=== PATIENT | female | born 2000 | race Hispanic/Latino ===

== ENCOUNTER 2019-04-24 09:09 | Inpatient (IN) | payer OTHER ==
[~2019-04-24] VITALS: Ht 157.5 cm; Wt 52.0 kg
--- OUTSIDE RECORDS SUMMARY | ~2019-04-24 | XMS | Encounter Summary ---
Demographics + + + | Address | [address] | | | [place] [address] | + + + | Home Phone | | + + + | Preferred Language | Unknown | + + + | Marital Status | Single | + + + | Jehovah'S Witness Affiliation | Unknown | + + + | Race | Unknown | + + + | Ethnic Group | Unknown | + + + Author + + + | Author | [facility] | | | and [place]arciso[place] | + + + | Organization | [facility] | | | and [place] | + + + | Address | Unknown | + + + | Phone | Unavailable | + + + Support + + +---------+ + | Name | Relationship | Address | Phone | + + +---------+ + | Meg Valenzuela | ECON | Unknown | | + + +---------+ + Care Team Providers + +------+ + | Care Parking Patroller Name | Role | Phone | + +------+ + PCP | Unavailable | + +------+ + Encounter Details +--------+ + + + + | Date | Type | Department | Care Team | Description | +--------+ + + + + | 03/30/ | Orders Only | [facility] | [place], | | | 2017 | | F[facility]ILITY [facility] | [address] | | | | | [address] | [address], | | | | | [address] [place], [place] | [place] [address] | | | | | [address] | [phone] | | | | | [phone] | | | +--------+ + + + + Social History + +-------+ +--------+------+ | Tobacco Use | Types | Packs/Day | Years | Date | | | | | Used | | + +-------+ +--------+------+ | Never Smoker | | | | | + +-------+ +--------+------+ + + + | Sex Assigned at | Date Recorded | | | | + + + | Not on file | | + + + + + + + | Job Start Date | Occupation | Industry | + + + + | Not on file | Not on file | Not on file | + + + + + + + + | Travel History | Travel Start | Travel End | + + + + + + | No recent travel history available. | + + documented as of this encounter Plan of Treatment Not on filedocumented as of this encounter Visit Diagnoses Not on filedocumented in this encounter"
--- OUTSIDE RECORDS SUMMARY | ~2019-04-24 | XMS | Clinical Summary ---
Demographics + + + | Address | [address] | | | [place] [address] | + + + | Home Phone | | + + + | Preferred Language | Unknown | + + + | Marital Status | Single | + + + | Yarsanism Affiliation | Unknown | + + + | Race | Unknown | + + + | Ethnic Group | Unknown | + + + Author + + + | Author | [facility] (Historical as of | | | 01-06-19) | + + + | Organization | [facility] (Historical as of | | | 01-06-19) | + + + | Address | Unknown | + + + | Phone | Unavailable | + + + Support + + +---------+ + | Name | Relationship | Address | Phone | + + +---------+ + | Meg Valenzuela | ECON | Unknown | | + + +---------+ + Care Team Providers + +------+ + | Care Research Psychologist Name | Role | Phone | + +------+ + PP | Unavailable | + +------+ + Allergies No Known Allergies Current Medications + + + +---------+------+------+-------+ | Prescription | Sig. | Disp. | Refills | Star | End | Statu | | | | | | t | Date | s | | | | | | Date | | | + + + +---------+------+------+-------+ | Vit-Fe | Take 1 tablet by | | | | | Activ | | Fumarate-FA | mouth daily with | | | | | e | | ( | breakfast. | | | | | | | MULTIVITAMIN & | | | | | | | | MINERALS W IRON/FA) | | | | | | | | 27-0.8 MG TABS | | | | | | | | tablet | | | | | | | + + + +---------+------+------+-------+ | docusate calcium | Take 1 capsule by | 30 | 0 | 08/3 | | Activ | | (SURFAK) 240 MG | mouth daily. | capsule | | 120 | | e | | capsule | | | | 17 | | | + + + +---------+------+------+-------+ | Breast Pump | Pt to have double | 1 each | 0 | 08/3 | | Activ | | (medical billing associate) | electric breast pump | | | 120 | | e | | | due to baby | | | 17 | | | | | in NICU, poor latch | | | | | | | | and engorgement. | | | | | | | | Pump every 3 hours | | | | | | + + + +---------+------+------+-------+ | | Take 1 tablet by | 90 | 3 | 11/0 | | Activ | | norgestimate-ethinyl | mouth daily. | tablet | | 8/20 | | e | | estradiol | | | | 17 | | | | (ORTHO-CYCLEN, 28,) | | | | | | | | 0.25-35 MG-MCG per | | | | | | | | tabletIndications: | | | | | | | | Encounter for | | | | | | | | initial prescription | | | | | | | | of contraceptive | | | | | | | | pills | | | | | | | + + + +---------+------+------+-------+ Active Problems No known active problems Resolved Problems + + + + | Problem | Noted | Resolved | | | Date | Date | + + + + | labor in third trimester with delivery | 01/21/20 | | | | 17 | 7 | + + + + | premature rupture of membranes (PPROM) delivered, current | 01/21/20 | | | hospitalization | 17 | 7 | + + + + | Normal spontaneous vaginal delivery | 01/20/20 | | | | 17 | 7 | + + + + Family History + + +------+ + | Medical History | Relation | Name | Comments | + + +------+ + | No Known Problems | Father | | | + + +------+ + | No Known Problems | Mother | | | + + +------+ + + +------+--------+ + | Relation | Name | Status | Comments | + +------+--------+ + | Father | | | | + +------+--------+ + | Mother | | | | + +------+--------+ + Social History + +-------+ +--------+------+ | Tobacco Use | Types | Packs/Day | Years | Date | | | | | Used | | + +-------+ +--------+------+ | Never Smoker | | | | | + +-------+ +--------+------+ + +---+---+---+ | Smokeless Tobacco: | | | | | Never Used | | | | + +---+---+---+ + + +---------+ + | Alcohol Use | Drinks/We | oz/Week | Comments | | | ek | | | + + +---------+ + | No | | | | + + +---------+ + + + + | Sex Assigned at | Date Recorded | | | | + + + | Not on file | | + + + Last Filed Vital Signs + + + + | Vital Sign | Reading | Time Taken | + + + + | Blood Pressure | 94/56 | 03/23/2017 11:36 AM PDT | + + + + | Pulse | 57 | 01/20/2017 10:27 AM PDT | + + + + | Temperature | 36.5 C (97.7 F) | 01/20/2017 10:27 AM PDT | + + + + | Respiratory Rate | 16 | 01/20/2017 10:27 AM PDT | + + + + | Oxygen Saturation | - | - | + + + + | Inhaled Oxygen | - | - | | Concentration | | | + + + + | Weight | 42 kg (92 lb 9.6 oz) | 03/23/2017 11:36 AM PDT | + + + + | Height | 157.5 cm (5' 2") | 03/23/2017 11:36 AM PDT | + + + + | Body Mass Index | 16.94 | 03/23/2017 11:36 AM PDT | + + + + Plan of Treatment + + + + + | Health Maintenance | Due Date | Last Done | Comments | + + + + + | Well Child Check | | | | | | 2 | | | + + + + + | Vaccine: Influenza | | 02/28/2017, 04/22/2016, | | | (#1) | 9 | 03/23/2011 | | + + + + + | Vaccine: | | 03/23/2011, 08/06/2003, | | | Dtap/Tdap/Td (7 - | 1 | 03/29/2000, Additional history | | | Td) | | exists | | + + + + + | Vaccine: HPV | Completed | 02/04/2015, 01/03/2013, | | | | | 03/23/2011 | | + + + + + Results Not on filefrom Last 3 Months Insurance + +--------+ +------+-------+ + | Payer | Benefi | Subscriber | Type | Phone | Address | | | t Plan | ID | | | | | | / | | | | | | | Group | | | | | + +--------+ +------+-------+ + | MEDICAID | [employer] | [id number] | | | [address] | | | [place] | | | | [place] | | | [place] | | | | [id number] | | | [employer] | | | | | + +--------+ +------+-------+ + + +--------+ +--------+ + + | Guarantor Name | Accoun | Relation to | Date | Phone | Billing Address | | | t Type | Patient | of | | | | | | | | | | + +--------+ +--------+ + + | MIKAL REN | Person | Self [birth year] Home: | [address] | | | al/Fam | | 1999 | [phone] [place] [address] | | | marj | | | [phone] | | + +--------+ +--------+ + +
--- OUTSIDE RECORDS SUMMARY | ~2019-04-24 | XMS | Encounter Summary ---
Demographics + + + | Address | [address] | | | [place] [address] | + + + | Home Phone | | + + + | Preferred Language | Unknown | + + + | Marital Status | Single | + + + | Taoism Affiliation | Unknown | + + + | Race | Unknown | + + + | Ethnic Group | Unknown | + + + Author + + + | Author | [facility] | | | and Narcisoana | + + + | Organization | [facility] | | | and [facility] | [...] Team Providers + +------+ + | Care Inspector Hairspring Name | Role | Phone | + +------+ + PCP | Unavailable | + +------+ + Encounter Details +--------+ + + + + | Date | Type | Department | Care Team | Description | +--------+ + + + + | 01/20/ | Orders Only | [facility] | [place], | | | [address] | | FERTILITY CENTER | [address] | | | | | [address] | [address], | | | | | [address] [place], [place] | [place] [address] | | | | | [address] | [phone] | | | | | [phone] | | | +--------+ + + + + Social History + +-------+ +--------+------+ | Tobacco Use | Types | Packs/Day | Years | Date | | | | | Used | | + +-------+ +--------+------+ | Never Assessed | | | | | + +-------+ [...]
--- OUTSIDE RECORDS SUMMARY | ~2019-04-24 | XMS | Encounter Summary ---
Demographics + + + | Address | [address] | | | [place] [address] | + + + | Home Phone | | + + + | Preferred Language | Unknown | + + + | Marital Status | Single | + + + | Christian Affiliation | Unknown | + + + | Race | Unknown | + + + | Ethnic Group | Unknown | + + + Author + + + | Author | [facility] | | | and Narcisoana | + + + | Organization | [facility] | | | and Narcisoana | [...] Team Providers + +------+ + | Care Funeral Workers Name | Role | Phone | + +------+ + PCP | Unavailable | + +------+ + Encounter Details +--------+ + + + + | Date | Type | Department | Care Team | Description | +--------+ + + + + | 01/17/ | Hospital | [facility] | Keara Bird | Normal spontaneous | | 2017 - | Encounter | [facility] | MD [address] | vaginal delivery | | | | AND DELIVERY [address] | [address] | | | 01/20/ | | [address] | [place] [address] | | | 2017 | | [place], [place] | [phone] | | | | | [address] | | | | | | [phone] | | | +--------+ + + + [...] + + documented as of this encounter Last Filed Vital Signs + + + + + | Vital Sign | Reading | Time Taken | Comments | + + + + + | Blood Pressure | 101/67 | 01/20/2017 10:30 AM | | | | | PDT | | + + + + + | Pulse | 57 | 01/20/2017 10:30 AM | | | | | PDT | | + + + + + | Temperature | 36.5 C (97.7 F) | 01/20/2017 10:30 AM | | | | | PDT | | + + + + + | Respiratory Rate | 16 | 01/20/2017 10:30 AM | | | | | PDT | | + + + + + | Oxygen Saturation | - | - | | + + + + + | Inhaled Oxygen | - | - | | | Concentration | | | | + + + + + | Weight | - | - | | + + + + + | Height | 157.5 cm (5' 2") | 01/20/2017 10:30 AM | | | | | PDT | | + + + + + | Body Mass Index | - | - | | + + + + + documented in this encounter Discharge Summaries Sher Barrow MD - 01/20/2017 9:15 AM PDT Discharge Summaries by Sher Barrow MD at 01/20/17914 Author: Sher Barrow MD Service: Obstetrics/Gynecology Author Type: Physician Filed: 01/20/17955 Date of Service: 01/20/17914 Status: Signed [employer] Operator: Sher Barrow MD (Physician) [facility] Service: Obstetrics & Gynecology Progress/Discharge summary Note Day: 2 Date of Admission: 01/18/2017 Date of Discharge: 01/20/2017 SUBJECTIVE The patient feels well. Pain is well controlled with current medications. The patient is am bulating well. The patient is tolerating a normal diet. Urinary output is adequate. Flatus has been passed. The baby iswell. Patient is breast and bottle feeding. COURSE IN THE HOSPITAL: labor and delivery at 34 + weeks. Uncomplicated maternal course. Baby is in the N ICU but doing well. Will be staying for some time. Neema feels ready for discharge. Uncomplicated course. At the time of discharge she is taking oral food and fluid s without difficulty, voiding, ambulating all without difficulty. She is ready for an eager to be discharged. Standard precautions for fever, heavy bleeding given. She will followup in the hospital clinic in a few days as scheduled, and scheduled to see me in the ffice in approximately 6 weeks for a routine visit. Prescriptions given, question s answered. Scheduled Medications docusate calcium 240 mg Oral Daily levothyroxine 50 mcg Oral QAM AC Continuous Infusions lactated ringers PRN Medications acetaminophen, gpkxravrvu-pqxtnpx-iukn vera, dibucaine, diphenhydrAMINE, [COMPLETED] ibupro fen FOLLOWED BY ibuprofen, lactated ringers, lanolin, oxyCODONE OR oxyCODONE, simeth icone, saline lock IV - prn tolerating PO fluid AND sodium chloride, witch shelby-glyceri n, zolpidem OBJECTIVE Vital Signs: BP 111/62 mmHg | Pulse 95 | Temp(Src) 98.3 F (36.8 C) (Oral) | Resp 18 | Ht 1.575 m (5' 2") | Wt 83.462 kg (184 lb) | BMI 33.65 kg/m2 | SpO2 98% | LMP 05/01/2015 | ? Yes General: alert, appears stated age and cooperative Bowel Sounds: active Uterine Fundus: firm @ u-4 Incision: healing well Lochia: appropriate Extremities: no edema DATA CBC: Lab Results Component Value Date WBC 15.05 (H) 01/19/2017 RBC 3.39 (L) 01/19/2017 HGB 11.1 (L) 01/19/2017 HCT 31.8 (L) 01/19/2017 MCV 93.9 01/19/2017 MCH 32.8 01/19/2017 MCHC 34.9 01/19/2017 RDW 45.5 01/19/2017 PLT 182 01/19/2017 MPV 11.8 01/19/2017 PROBLEM LIST Principal Problem: labor in third trimester with delivery Active Problems: premature rupture of membranes (PPROM) delivered, current hospitalization Normal spontaneous vaginal delivery ASSESSMENT & PLAN See above. Uncomplicated maternal course. baby is in the NICU but doing well. Status post vaginal delivery. Doing well. Discharge home with standard precautions and return to clinic in 4-6 weeks. Uncomplicated course. At the time of discharge she is taking oral food and fluid s without difficulty, voiding, ambulating all without difficulty. She is ready for an eager to be discharged. Standard precautions for fever, heavy bleeding given. She will followup in the hospital clinic in a few days as scheduled, and scheduled to see me in the [facility] in approximately 6 weeks for a routine visit. Prescriptions given, question s answered. CONDITION: Good Follow-Up: At her primary OB in [place], or: Sher Barrow M.D [address] [address] Discharge Meds: Medication List START taking these medications docusate calcium 240 MG capsule QTY: 30 capsule Refills: 0 Commonly known as: SURFAK Take 1 capsule by mouth daily. ibuprofen 600 MG tablet QTY: 30 tablet Refills: 0 Commonly known as: MOTRIN Take 1 tablet by mouth every 6 (six) hours as needed (for cramping) for up to 10 days. oxyCODONE 5 MG immediate release tablet QTY: 30 tablet Refills: 0 Commonly known as: ROXICODONE Take 1 tablet by mouth every 4 (four) hours as needed for up to 10 days. CONTINUE taking these medications multivitamin & minerals w iron/FA 27-0.8 MG Tabs tablet Refills: 0 You might also be taking other medications not listed above. If you have questions about an y of your other medications, talk to the person who prescribed them or your Primary Care Pro vider. Where to Get Your Medications You can get these medications from any pharmacy Bring a paper prescription for each of these medications docusate calcium 240 MG capsule ibuprofen 600 MG tablet oxyCODONE 5 MG immediate release tablet SHER BARROW MD documented in thi s encounter Medications at Time of Discharge + + + +---------+ + + | Medication | Sig | Dispensed | Refills | Start | End Date | | | | | | Date | | + + + +---------+ + + | Misc. Devices | Pt to have double | 1 each | 0 | 01/21/20 | | | (BREAST PUMP) MISC | electric breast pump | | | 17 | | | | due to baby | | | | | | | in NICU, poor latch | | | | | | | and engorgement. | | | | | | | Pump every 3 hours | | | | | + + + +---------+ + + | 27-0.8 mg | Take 1 tablet by | | 0 | 01/18/20 | | | multivitamin tablet | mouth daily with | | | 17 | | | | breakfast. | | | | | + + + +---------+ + + | docusate calcium | Take 1 capsule by | 30 | 0 | 01/21/20 | | | (SURFAK) 240 mg | mouth daily. | capsule | | 17 | 8 | | capsule | | | | | | + + + +---------+ + + documented as of this encounter Progress Notes Conversion Transaction, Provider Unknown - 01/20/2017 1:17 PM PDTFormatting of this note m ight be different from the original. Note by Kate Baig RN at 01/20/171316 Author: Kate Baig RN Service: (none) Author Type: Registered Nurse Filed: 01/20/171317 Date of Service: 01/20/171316 Status: Signed [employer] Operator: Kate Baig RN (Registered Nurse) Pt with baby in NICU. Gave mom Rx for breast pump. States she has WIC in [place]. onver kathie Transaction, Provider Unknown - 01/20/2017 8:32 AM PDT Progress Notes by Camila Stone RN at 01/20/17831 Author: Camila Stone RN Service: (none) Author Type: Registered Nurse Filed: 01/20/17832 Date of Service: 01/20/17831 Status: Signed [employer] Operator: Camila Stone RN (Registered Nurse) Pt sleeping soundly. Did not wake as I entered room. Let pt sleep undisturbed. onver kathie Transaction, Provider Unknown - 01/20/2017 8:30 AM PDT Progress Notes by Camila Stone RN at 01/20/17829 Author: Camila Stone RN Service: (none) Author Type: Registered Nurse Filed: 01/20/17830 Date of Service: 01/20/17829 Status: Signed [employer] Operator: Camila Stone RN (Registered Nurse) Entered room, pt sleeping soundly. FOB at bedside holding infant. Asked him to notify RN yi en pt awakes. onver kathie Transaction, Provider Unknown - 01/19/2017 4:00 PM PDT Case Management by PAULA Valles at 01/19/17 1600 Author: PAULA Valles Service: (none) Author Type: Computator Filed: 01/19/17 1618 Date of Service: 01/19/171599 Status: Signed [employer] Operator: PAULA Valles (Computator) 01/19/17 1558 Discharge Planning Evaluation Admitting Diagnosis Obstetrics / Gynecology Readmission No Living Arrangements Parent;Family members Support Systems Parent;Family members;Spouse/significant other Type of Residence Private residence House type House-1 story Bathrooms on 1st Floor 1-Full Independent with ADL's Yes Independent with Mobility Yes Home Care Services No Caregiver after Discharge No Mental Status Oriented Prior functional status Independent Resources Financial concerns No Transportation issues No Patient/Family concerns [place] of Pharmacy [facility] in [place] Previous home health equipment No Vascular access device No Ostomy/Drains/Appliances No Anticipated Disposition Facility Type Home Medicare Important Message (SJ) Not applicable Met with 16 yo MOB Neema Logan ([phone]) and the 19 yo FOB Juan Feliz ([phone]) and discussed discharge planning. Pt is a 16 y.o., female who resides with her mother (Stephanie Valenzuela [phone]), father, and two siblings at: [address] [place] [address], [place] [address]. MOB and FOB continue to be in a relationship. The MOB delivered a baby boy at [facility] on 01-18-17. The baby boy was admitted to the NICU ( NICU Room 17 ) due to prematurity. The baby boy is named " Kolton Pulido " AKA : " kevin Spencer " while he is at [facility]. Per chart note: " Kevin Logan is a Gestational Age: 34w4d week male , birthweight: 2210 g born v ia Vaginal, Spontaneous Delivery to a 17 year old G 1, P 0, admitted to the NICU for prematu rity complicated by labor Maternal history is remarkable for teen " Patient's PCP is: Not given Patient's insurance: [facility] Medicaid Coverage concerns: no Medication coverage/concerns: no Rx Bedside Delivery: Preferred Pharmacy: [facility] in [facility] resources utilized / needed: MOB said she plans to breast feed the baby and is al ready enrolled in the WIC Program at the [place] office. MOB anf FOB said they have good family support. FOB said he is employed and has transportation. MOB said they have a car seat, crib, and other baby necessities. CM discussed PPD with MOB and FOB and provided a brochure about PPD. MOB agreed to seek a d octors help if she develops any signs or symptoms of PPD. Assistance in transportation: no Identification of any specific education / training: no Barriers to Discharge / Alternative housing needed: no MOB and FOB provided with list of local pediatricians to choose from. They said they preferred to come to the [facility] for massotherapist visits. Anticipated DCP: Home CLARE Valles onver kathie Transaction, Provider Unknown - 01/19/2017 1:15 PM PDT Note by Vikki Davila RN at 01/19/17 2248 Author: Vikki Davila RN Service: (none) Author Type: Registered Nurse Filed: 01/19/17 1013 Date of Service: 01/19/17 2254 Status: Signed [employer] Operator: Vikki Davila RN (Registered Nurse) Patient is pumping and hand expressing q 3 h, encouraged her to call the [facility] that said they would give her a pump. Will call us if she needs a Rx. Sher Nuno MD - 01/19/2017 11:42 AM PDTFormatting of this note might be different from th e original. Progress Notes by Sher Barrow MD at 01/19/17 1142 Author: Sher Barrow MD Service: Obstetrics/Gynecology Author Type: Physician Filed: 01/19/17 1231 Date of Service: 01/19/17 1142 Status: Signed [employer] Operator: Sher Barrow MD (Physician) [facility] Service: Obstetrics & Gynecology Progress Note Day: 1 SUBJECTIVE The patient feels well. Pain is well controlled with current medications. The patient is am bulating well. The patient is tolerating a normal diet. Urinary output is adequate. Flatus has been passed. The baby is in the NICU, but doing as well as expected. No major problems a t this point.. Patient is breast and bottle feeding. Scheduled Medications docusate calcium 240 mg Oral Daily ibuprofen 600 mg Oral 4 times per day Continuous Infusions oxytocin PRN Medications acetaminophen, ammonia aromatic, lnzdoyoqyj-viwhxiv-jogs vera, calcium carbonate, carbopros t, diphenhydrAMINE, ibuprofen FOLLOWED BY [START ON 01/20/2017] ibuprofen, lanolin, brenton amide, loperamide, methylergonovine, misoprostol OR misoprostol, oxyCODONE OR oxyCOD ONE, simethicone, saline lock IV - prn tolerating PO fluid AND sodium chloride, witch guevara zel-glycerin OBJECTIVE Vital Signs: BP 109/68 (BP Location: Left upper arm) | Pulse 65 | Temp 98.1 F (36.7 C) (Axillary) | Resp 20 | Ht 5' 2" (1.575 m) | ? Unknown General: alert, appears stated age, cooperative and no distress Bowel Sounds: active Uterine Fundus: firm @ umbilicus -4 Incision: healing well Lochia: appropriate Extremities: trace to 1+ bilateral pedal edema DATA CBC: Lab Results Component Value Date WBC 15.05 (H) 01/19/2017 RBC 3.39 (L) 01/19/2017 HGB 11.1 (L) 01/19/2017 HCT 31.8 (L) 01/19/2017 MCV 93.9 01/19/2017 MCH 32.8 01/19/2017 MCHC 34.9 01/19/2017 RDW 45.5 01/19/2017 PLT 182 01/19/2017 MPV 11.8 01/19/2017 PROBLEM LIST Active Problems: * No active hospital problems. * ASSESSMENT & PLAN Uncomplicated course thus far. Baby in the NICU as expected but doing quite well. She will be staying until tomorrow. Status vaginal delivery. Doing well. Continue current care. SHER BARROW MD 01/19/2017 izeSher cooper MD - 01/18/2017 11:43 AM PDT Progress Notes by Sher Barrow MD at 01/18/17 1143 Author: Sher Barrow MD Service: Obstetrics/Gynecology Author Type: Physician Filed: 01/18/17 1148 Date of Service: 01/18/17 114 Status: Signed [employer] Operator: Sher Barrow MD (Physician) [facility] Service: Obstetrics & Gynecology Labor and delivery Note Patient admitted last night from [place], Dr. Bird attending. She received a dose of be tamethasone approximately 8 PM last night. She is on ampicillin and azithromycin. Her membra jadon were initially intact, but spontaneous rupture of membranes this morning around 6 AM. No labor at the time of me taking over from Dr. Bird. Comfortable, no complaint of contracti ons. Category 1 heart rate tracing. After discussion with patient, will proceed with Pitocin augmentation. 34+ weeks. Received 1 dose of betamethasone, and I think waiting for the second dose is, beyond 34 weeks, not in dicated, particularly with advanced cervical dilation. Pitocin augmentation initiated. Epidu ral anesthesia per her desire and request. Anticipate vaginal delivery. SHER BARROW MD 01/18/2017 documented in thi s encounter Plan of Treatment Not on filedocumented as of this encounter Procedures + +--------+ + + + | Procedure Name | Priori | Date/Time | Associated Diagnosis | Comments | | | ty | | | | + +--------+ + + + | TISSUE REQUEST FOR | Routin | 01/19/2017 | | Results for this | | PATHOLOGY (NON-ORD) | e | 10:45 AM | | procedure are in the | | | | PDT | | results section. | + +--------+ + + + | CBC NO DIFFERENTIAL | Routin | 01/19/2017 | | Results for this | | | e | 6:37 AM | | procedure are in the | | | | PDT | | results section. | + +--------+ + + + | CBC NO DIFFERENTIAL | Routin | 01/17/2017 | | Results for this | | | e | 11:15 PM | | procedure are in the | | | | PDT | | results section. | + +--------+ + + + | GESTATIONAL GLUCOSE | Routin | 11/17/2016 | | Results for this | | TEST, 1HR | e | 12:00 AM | | procedure are in the | | | | PDT | | results section. | + +--------+ + + + | C. TRACHOMATIS AND | Routin | 08/20/2016 | | Results for this | | N. GONORRHOEAE, NAAT | e | 12:00 AM | | procedure are in the | | ([facility]) | | PDT | | results section. | + +--------+ + + + | HIV 1 AND 2 ANTIBODY | Routin | 08/16/2016 | | Results for this | | DIFFERENTIATION | e | 12:00 AM | | procedure are in the | | | | PDT | | results section. | + +--------+ + + + | OBSTETRICS PANEL | Routin | 08/16/2016 | | Results for this | | | e | 12:00 AM | | procedure are in the | | | | PDT | | results section. | + +--------+ + + + documented in this encounter Results Tissue Request For Pathology (01/19/2017 10:45 AM PDT) + + | Specimen | + + | Soft tissue sample | | (specimen) | + + + + + | Narrative | Performed At | + + + | SPECIMEN(S): A PLACENTA - MICRO 3T SPECIMEN SOURCE: A. PLACENTA | EXTERNAL LAB | | - MICRO 3T CLINICAL HISTORY: 01/18/2017 at 2008 H. Mother's Age: | | | 16. OB History: . P: 0. A: __ (spont/elect). Gestation | | | Age: 34 +4. 's Weight: 2110 grams. Score: 8/9. Rh: | | | O+ (Rhogam yes/no). Rubella: imm. RPR: neg. FINAL PATHOLOGIC | | | DIAGNOSIS: Placenta (344 grams), umbilical cord and membranes: | | | - Placental weight: approximately 30th percentile for gestational | | | age. - Chorionic villi with - Appropriate maturation for | | | gestational age. - No significant villous infarction | | | identified. - No evidence of trophoblastic disease. | | | - Completeness of cotyledons cannot be ascertained due to | | | fragmentation of placenta (see gross description). - | | | Intervillous fibrin (focal). - Three vessel umbilical cord with no | | | pathologic abnormality. - membranes with no pathologic | | | abnormality. - No evidence of an infectious or inflammatory process. | | | BES:emb:C2NR GROSS DESCRIPTION: One specimen is received in one | | | container, labeled with the patient's name: A. Received | | | designated "Placenta and cord" consists of an extreme 0.4 x 14.7 x 2.7 | | | cm discoid placenta. The 23.7 x 1.5 cm umbilical cord inserts 5.2 cm | | | from the nearest placental margin. Cut sections through the cord | | | reveal three vessels. Separate within the container is one section of | | | unattached umbilical cord that is 21.8 x 1.2 cm. The umbilical cord | | | coiling index is 8 spirals per 10 cm. In accordance to protocol, | | | approximately 18.0 cm of umbilical cord is retained for possible | | | future studies. The placental membranes are translucent and wrinkled | | | with adherent blood clot. The surfaces are blue-purple and | | | shiny with the usual radiating vasculature. The maternal surface is | | | baumann-brown and spongy with areas of fragmentation and roughening; | | | completeness of a placenta cannot be confirmed. The trimmed placenta | | | weighs 344 grams. Cut sections reveal a deep maroon placenta | | | parenchyma with one area of pink-moses firm consolidation is 1.3 cm in | | | greatest dimension. Basal plate fibrin is of normal thickness. No | | | areas of infarction are grossly identified. Cassette summary: (A1) | | | umbilical cord and membranes; (A2) area of consolidation; (A3) | | | placenta parenchyma. FM The gross description section of this | | | report has been prepared using a voice recognition system. The report | | | was reviewed for accuracy, however, sound-alike word errors, addition | | | and/or deletions may occur. If there is any question about this | | | report please contact the originating pathologist. MICROSCOPIC | | | EXAMINATION: Histologic sections of all submitted blocks are examined | | | by light microscopy. These findings, together with the gross | | | examination, support the pathologic diagnosis. PERFORMING LABORATORY: | | | Professional interpretation and technical preparation was performed | | | by [employer], [address], | | | [place] [address] (Film Printer: Mahendra Grace M.D.; | | | [facility]#: [id number]). Diagnostician: Mahendra Grace MD Pathologist | | | Electronically Signed 01/21/2017 | | + + + + +---------+ + + | Performing | Address | City/State/[facility] Centercode | Phone Number | | Organization | | | | + +---------+ + + | EXTERNAL LAB | | | | + +---------+ + + CBC no Differential (01/19/2017 6:37 AM PDT) + + + + + + | Component | Value | Ref Range | Performed | Pathologist | | | | | At | Signature | + + + + + + | WBC | 15.05 (H) | 4.50 - 11.00 | EXTERNAL | | | | | K/uL | LAB | | + + + + + + | RED CELL | 3.39 (L) | 4.10 - 5.10 | EXTERNAL | | | COUNT | | M/uL | LAB | | + + + + + + | Hgb | 11.1 (L) | 12.0 - 16.0 | EXTERNAL | | | | | g/dL | LAB | | + + + + + + | Hematocrit, | 31.8 (L) | 36.0 - 46.0 % | EXTERNAL | | | POC | | | LAB | | + + + + + + | MCV | 93.9 | 78.0 - 98.0 fl | EXTERNAL | | | | | | LAB | | + + + + + + | MCH | 32.8 | 25.0 - 35.0 pg | EXTERNAL | | | | | | LAB | | + + + + + + | MCHC | 34.9 | 31.0 - 37.0 | EXTERNAL | | | | | g/dL | LAB | | + + + + + + | RDW-CV | 45.5 | 37 - 53 fl | EXTERNAL | | | | | | LAB | | + + + + + + | Platelet | 182 | 150 - 450 K/uL | EXTERNAL | | | Count | | | LAB | | | Plasma | | | | | + + + + + + | MPV | 11.8Comment: Testing | fl | EXTERNAL | | | | performed at [facility];[address] | | LAB | | | | [address];[place], [place] | | | | | | [address] | | | | + + + + + + + + | Specimen | + + | | + + + +---------+ + + | Performing | Address | City/State/Zipcode | Phone Number | | Organization | | | | + +---------+ + + | EXTERNAL LAB | | | | + +---------+ + + CBC no Differential (01/17/2017 11:15 PM PDT) + + + + + + | Component | Value | Ref Range | Performed | Pathologist | | | | | At | Signature | + + + + + + | WBC | 10.85 | 4.50 - 11.00 | EXTERNAL | | | | | K/uL | LAB | | + + + + + + | RED CELL | 3.38 (L) | 4.10 - 5.10 | EXTERNAL | | | COUNT | | M/uL | LAB | | + + + + + + | Hgb | 10.9 (L) | 12.0 - 16.0 | EXTERNAL | | | | | g/dL | LAB | | + + + + + + | Hematocrit, | 31.8 (L) | 36.0 - 46.0 % | EXTERNAL | | | POC | | | LAB | | + + + + + + | MCV | 94.1 | 78.0 - 98.0 fl | EXTERNAL | | | | | | LAB | | + + + + + + | MCH | 32.2 | 25.0 - 35.0 pg | EXTERNAL | | | | | | LAB | | + + + + + + | MCHC | 34.3 | 31.0 - 37.0 | EXTERNAL | | | | | g/dL | LAB | | + + + + + + | RDW-CV | 45.5 | 37 - 53 fl | EXTERNAL | | | | | | LAB | | + + + + + + | Platelet | 167 | 150 - 450 K/uL | EXTERNAL | | | Count | | | LAB | | | Plasma | | | | | + + + + + + | MPV | 11.5Comment: Testing | fl | EXTERNAL | | | | performed at [facility];[address] | | LAB | | | | [address];[place], [place] | | | | | | [address] | | | | + + + + + + + + | Specimen | + + | | + + + +---------+ + + | Performing | Address | City/State/Zipcode | Phone Number | | Organization | | | | + +---------+ + + | EXTERNAL LAB | | | | + +---------+ + + Gestational Glucose Test, 1Hr (11/17/2016 12:00 AM PDT) + +-------+ + + + | Component | Value | Ref Range | Performed | Pathologist | | | | | At | Signature | + +-------+ + + + | Glucose, | 122 | | EXTERNAL | | | GTT 1HR | | | LAB | | | Preg | | | | | + +-------+ + + + + + | Specimen | + + | | + + + +---------+ + + | Performing | Address | City/State/Zipcode | Phone Number | | Organization | | | | + +---------+ + + | EXTERNAL LAB | | | | + +---------+ + + C. trachomatis and N. gonorrhoeae, NAAT ([facility]) (08/20/2016 12:00 AM PDT) + + + + + + | Component | Value | Ref Range | Performed | Pathologist | | | | | At | Signature | + + + + + + | Chlamydia | not detected | | EXTERNAL | | | Source | | | LAB | | + + + + + + + + | Specimen | + + | | + + + +---------+ + + | Performing | Address | City/State/Zipcode | Phone Number | | Organization | | | | + +---------+ + + | EXTERNAL LAB | | | | + +---------+ + + Obstetrics Panel (08/16/2016 12:00 AM PDT) + + + + + + | Component | Value | Ref Range | Performed | Pathologist | | | | | At | Signature | + + + + + + | HEP B | Negative | | EXTERNAL | | | SURFACE | | | LAB | | | ANTIBODY | | | | | + + + + + + | RUBEOLA IGG | immune | | EXTERNAL | | | (REF) | | | LAB | | + + + + + + | Treponema | negative | | EXTERNAL | | | Pallidum Ab | | | LAB | | | Total | | | | | + + + + + + + + | Specimen | + + | Blood specimen | | (specimen) | + + + +---------+ + + | Performing | Address | City/State/Zipcode | Phone Number | | Organization | | | | + +---------+ + + | EXTERNAL LAB | | | | + +---------+ + + HIV 1 and 2 Antibody Differentiation (08/16/2016 12:00 AM PDT) + + + + + + | Component | Value | Ref Range | Performed | Pathologist | | | | | At | Signature | + + + + + + | HIV 1 and 2 | non reactive | | EXTERNAL | | | Ab | | | LAB | | + + + + + + + + | Specimen | + + | Blood specimen | | (specimen) | + + + +---------+ + + | Performing | Address | City/State/Zipcode | Phone Number | | Organization | | | | + +---------+ + + | EXTERNAL LAB | | | | + +---------+ + + documented in this encounter Visit Diagnoses + + | Diagnosis | + + | Normal spontaneous vaginal delivery Normal delivery | + + documented in this encounter
--- OUTSIDE RECORDS SUMMARY | ~2019-04-24 | XMS | Encounter Summary ---
Demographics + + + | Address | [address] | | | [place] [address] | + + + | Home Phone | | + + + | Preferred Language | Unknown | + + + | Marital Status | Single | + + + | Synagogue Affiliation | Unknown | + + + | Race | Unknown | + + + | Ethnic Group | Unknown | + + + Author + + + | Author | [facility] | | | and [place] | + + + | Organization | [facility] | | | and [...] Team Providers + +------+ + | Care Cook Pickled Meat Name | Role | Phone | + +------+ + PCP | Unavailable | + +------+ + Encounter Details +--------+ + + + + | Date | Type | Department | Care Team | Description | +--------+ + + + + | 01/17/ | Orders Only | [facility] | Conversion | | | 2017 | | CONVERSION [address] | Transaction, | | | | | [address] | Provider Unknown | | | | | [place], [place] | | | | | | [phone] | (Fax) | | | | | | | | +--------+ + + + [...]
--- OUTSIDE RECORDS SUMMARY | ~2019-04-24 | XMS | Clinical Summary ---
Demographics + + + | Address | [address] | | | [place] [address] | + + + | Home Phone | | + + + | Preferred Language | Unknown | + + + | Marital Status | Single | + + + | Amish Affiliation | Unknown | + + + | Race | Unknown | + + + | Ethnic Group | Unknown | + + + Author + + + | Author | [facility] | | | and [place] | + + + | Organization | [facility] | | | and [place] [...] Team Providers + +------+ + | Care Marzipan Molder Name | Role | Phone | + +------+ + PCP | Unavailable | + +------+ + Allergies No Known Allergies Medications + + + +---------+------+------+-------+ | Medication | Sig | Dispensed | Refills | Star | End | Statu | | | | | | t | Date | s | | | | | | Date | | | + + + +---------+------+------+-------+ | 27-0.8 mg | Take 1 tablet by | | 0 | 08/2 | | Activ | | multivitamin tablet | mouth daily with | | | 8/20 | | e | | | breakfast. | | | 17 | | | + + + +---------+------+------+-------+ | Misc. Devices | Pt to have double | 1 each | 0 | 08/3 | | Activ | | (BREAST PUMP) MISC | electric breast pump | | | 1/20 | | e | | | due to baby | | | 17 | | | | | in NICU, poor latch | | | | | | | | and engorgement. | | | | | | | | Pump every 3 hours | | | | | | + + + +---------+------+------+-------+ Active Problems Not on file Family History + + +------+ + | Medical History | Relation | Name | Comments | + + +------+ + | No known problems | Father | | | + + +------+ + | No known problems | Mother | | | + + +------+ + + +------+--------+ + | Relation | Name | Status | Comments | + +------+--------+ + | Father | | | | + +------+--------+ + | Father | [...] recent travel history available. | + + Last Filed Vital Signs + + + + + | Vital Sign | Reading | Time Taken | Comments | + + + + + | Blood Pressure | 94/56 | 03/23/2017 11:37 AM | | | | | PDT [...] kg (92 lb 9.6 oz) | 03/23/2017 11:37 AM | | | | | PDT | | + + + + + | Height | 157.5 cm (5' 2") | 03/23/2017 11:37 AM | | | | | PDT | | + + + + + | Body Mass Index | 16.94 | 03/23/2017 11:37 AM | | | | | PDT | | + + + + + Plan of Treatment + + + + + | Health Maintenance | Due Date | Last Done | Comments | + + + + + | Well Child Check | | | | | | 2 | | | + + + + + | Vaccine: HPV (1 - | | | | | Female 3-dose | 4 | | | | series) | | | | + + + + + | Vaccine: | | | | | Dtap/Tdap/Td (1 - | 8 | | | | Tdap) | | | | + + + + + | Vaccine: Influenza | | | | | (#1) | 9 | | | + + + + + Results Not on filefrom Last 3 Months
[~2019-04-24 09:09] MED LIST: BACTRIM DS TAB1 EACH PO
--- NOTE | 2019-04-24 13:15 | PR ---
[facility] [address] [place], [place] [address] Signed Progress Notes IP Datetime Report Generated by CPN: 04/24/2019 13:14 PROGRESS NOTES: [id number] Impression: Reassuring heart rate; Slow Progression of Labor Procedures: Intrauterine Pressure Catheter; Sterile Vag Exam Plan: Augmentation VITAL SIGNS: [id number] Vital Signs: Reviewed; Within Normal Limits EXAM: [id number] Dilatation: 4.5 Effacement: 80 Station: -1 Uterine Contractions: rare MEMBRANES: [id number] Pooling: Positive Membrane Status: Ruptured Amniotic Fluid Color: Clear Comments: Pt seen and examined. Doing well. No ctxs. Discussed IUPC and pitocin augmentation. Fetus A: [id number] FHR Baseline: 135 Variability: Moderate 6-25bpm Accelerations: 15X15 Decelerations: None FHR Category: Category I Presentation: Vertex Comments on Fetus A: No evidence of metabolic acidosis Fetus B: [id number] Signing Physician: Jackie Reed DO Copies: ~ *Electronically Signed* 04/24/19 1314 JACKIE REED DO PATIENT NAME: MIKAL PRITCHETT PROGRESS NOTE DATE OF : 99 PHYSICIAN: JACKIE REED DO RPT #: [id number] REPORT IS CONFIDENTIAL AND NOT TO BE RELEASED WITHOUT AUTHORIZATION
--- NOTE | 2019-04-24 16:01 | PR ---
[facility] [address], [place] [address] Signed Progress Notes IP Datetime Report Generated by CPN: 04/24/2019 16:01 PROGRESS NOTES: [id number] Impression: Normal progression of labor; Reassuring heart rate Procedures: Intrauterine Pressure Catheter; Sterile Vag Exam Plan: Continue present management; Anesthesia consult VITAL SIGNS: [id number] Vital Signs: Reviewed; Within Normal Limits EXAM: [id number] Dilatation: 6.5 Effacement: 80 Station: -1 Uterine Contractions: rare MEMBRANES: [id number] Pooling: Positive Membrane Status: Ruptured Amniotic Fluid Color: Clear Comments: Pt seen and evaluted. Doing well. Increased pain w/ contractions and requesting epidural. Anesthesia in to evaluate patient. Few late decels noted earlier that resolved w/ position changes, IVF bolus, and O2. Cervical change noted and will continue pitocin. Anticipate Fetus A: [id number] FHR Baseline: 125 Variability: Moderate 6-25bpm Accelerations: 15X15 Decelerations: None FHR Category: Category I Presentation: Vertex Comments on Fetus A: No evidence of metabolic acidosis Fetus B: [id number] Signing Physician: Jackie Reed DO Copies: ~ *Electronically Signed* 04/24/19 4266 JACKIE REED DO PATIENT NAME: MIKAL PRITCHETT PROGRESS NOTE DATE OF : 99 PHYSICIAN: JACKIE REED DO RPT #: [id number] REPORT IS CONFIDENTIAL AND NOT TO BE RELEASED WITHOUT AUTHORIZATION
--- NOTE | 2019-04-25 09:00 | PR ---
[facility] [address] [facility] [place], [place] [address] Signed PP Progress Notes Datetime Report Generated by CPN: 04/25/2019 09:00 SUBJECTIVE: [id number] Pain: Within normal limits Nausea/Vomiting: Denies Flatus: Yes Bowel Movement: No Vital Signs: [id number] Vital Signs: Reviewed; Within Normal Limits EXAM: [id number] Cardiovascular: Normal Respiratory: Normal Abdomen/Uterus: Normal Lochia: Normal Vulva/Perineum: Not Done Breasts: Not Done CVA Tenderness: Normal Extremities: Normal Incision: Not Applicable Progress: Normal Exam Comments: Fundus firm U-2 nontender IMPRESSION/PLAN/PROCEDURES: [id number] Impression: Normal progression Plan: Discharge Progress Notes: Pt seen and examined. Doing well. Ambulating, voiding, and tolerating full diet. Breast and bottle feeding. Lochia minimal. Pain well controlled. Desires d/c home today. Reviewed education in detail and all questions answered Signing Physician: Jackie Reed DO Copies: ~ *Electronically Signed* 04/25/19 0900 JACKIE REED DO PATIENT NAME: MIKAL PRITCHETT PROGRESS NOTE DATE OF : 99 PHYSICIAN: JACKIE REED DO RPT #: [id number] REPORT IS CONFIDENTIAL AND NOT TO BE RELEASED WITHOUT AUTHORIZATION
--- NOTE | 2019-04-26 10:19 | PR ---
[facility] [address] [facility] [place], [place] [address] Signed PP Progress Notes Datetime Report Generated by CPN: 04/26/2019 10:19 SUBJECTIVE: [id number] Pain: Within normal limits Nausea/Vomiting: Denies Flatus: Yes Bowel Movement: Yes Vital Signs: [id number] Vital Signs: Reviewed EXAM: [id number] Cardiovascular: Normal Respiratory: Normal Abdomen/Uterus: Normal Lochia: Normal Vulva/Perineum: Not Done Breasts: Not Done CVA Tenderness: Normal Extremities: Normal Incision: Not Applicable Progress: Normal Exam Comments: Fundus firm U-2 nontender IMPRESSION/PLAN/PROCEDURES: [id number] Impression: Normal progression Plan: Discharge Progress Notes: Pt seen and examined. Doing well. Ambulating, voiding, and tolerating full diet. Breast and bottle feeding. Lochia minimal. Pain well controlled. Desires d/c home today. Reviewed education in detail and all questions answered Signing Physician: Jackie Reed DO Copies: ~ *Electronically Signed* 04/26/19 1019 JACKIE REED DO PATIENT NAME: MIKAL PRITCHETT PROGRESS NOTE DATE OF : 99 PHYSICIAN: JACKIE REED DO RPT #: [id number] REPORT IS CONFIDENTIAL AND NOT TO BE RELEASED WITHOUT AUTHORIZATION
== END 2019-04-26 12:30 | disposition home or self-care (01) | DRG 806 ==
LOC: FBCO 09:09 → EDSTATUS 11:06 → FBC 11:07 → FBCO 05-04 08:30
PROVIDERS: ADMIT Obstetrics & Gynecology
PROC: 10E0XZZ Delivery of Products of Conception, External Approach (ICD-10-PCS; principal; 2019-04-24)
PROC: 0UQMXZZ Repair Vulva, External Approach (ICD-10-PCS; 2019-04-24)
PROC: 0UQGXZZ Repair Vagina, External Approach (ICD-10-PCS; 2019-04-24)
PROC: 10H07YZ Insertion of Other Device into Products of Conception, Via Natural or Artificial Opening (ICD-10-PCS; 2019-04-24)
PROC: 00HU33Z Insertion of Infusion Device into Spinal Canal, Percutaneous Approach (ICD-10-PCS; 2019-04-24)
PROC: 3E0R3BZ Introduction of Anesthetic Agent into Spinal Canal, Percutaneous Approach (ICD-10-PCS; 2019-04-24)
DX: O71.82 Other specified trauma to perineum and vulva (principal); O71.4 Obstetric high vaginal laceration alone; Z37.0 Single live birth; Z3A.38 38 weeks gestation of pregnancy; O99.02 Anemia complicating childbirth; D64.9 Anemia, unspecified; O76 Abnormality in fetal heart rate and rhythm complicating labor and delivery; Z87.440 Personal history of urinary (tract) infections
CPT/HCPCS: 01960; 36415; 85027; A9270; J2590; J2795; J3010; J7121